=== PATIENT | female | born 2000 | race Caucasian/White ===

== ENCOUNTER 2022-01-06 01:28 | Inpatient (IN) | payer OTHER, SELFPAY ==
[2022-01-06] MEDS ORDERED: PROMETHAZINE INJ 25 MG/ML AMP IM PRN (02:16)
[2022-01-06] MEDS ORDERED: PENICILLIN 5 MU in NA CHLORIDE 0.9% 100 ML IV ONE (02:16)
[2022-01-06] MEDS ORDERED: Ringers Lactate 1,000 ML IV PRN (02:16)
[2022-01-06] MEDS: Ringers Lactate 1,000 ML IV SCH ×2 (02:30→20:40)
[2022-01-06] MEDS: LABETALOL HCL 100 MG/20 ML IV SCH ×2 (02:40→03:00)
[2022-01-06] MEDS ORDERED: METHYLERGONOVINE 0.2MG/ML AMP IM PRN (03:03)
[2022-01-06] MEDS ORDERED: BUTORPHANOL 1 MG/ML INJ IV PRN (03:03)
[2022-01-06] MEDS ORDERED: CARBOPROST TROME 250 MCG/ML IM PRN ×2 (03:03→03:56)
[2022-01-06] MEDS ORDERED: LABETALOL 20 MG/4ML SYRINGE IV ONE (03:11)
[2022-01-06] MEDS ORDERED: CARBOPROST TROME 250 MCG/ML IM ONE (03:18)
[2022-01-06] MEDS ORDERED: LIDOCAINE 1% MPF 30 ML VIAL ONE (03:18)
[2022-01-06] MEDS ORDERED: METHYLERGONOVINE 0.2MG/ML AMP IM ONE (03:18)
[2022-01-06] MEDS ORDERED: MAGNESIUM SULF/STERILE WATER 1,000 ML IV SCH (03:30)
[2022-01-06 03:33] LABS: Specific Gravity 1.025 (1.005-1.030); Urine Bilirubin Negative (Negative); Urine Blood Trace-intact (Negative); Urine Clarity Clear (Clear); Urine Color Yellow (Yellow); Urine Glucose Negative (Negative); Urine Protein 3+ (Negative); Urine Urobilinogen 0.2 mg/dL (0.2-1.0)
[2022-01-06 03:33] LABS: Absolute Lymphocytes (CBC) 2.7 K/uL (0.7-4.9); Hematocrit 39.1 % (36.0-45.0); Lymphocytes % 25.6 % (15.3-44.8); MCV 90.6 fL (80-100); MPV 11.5 fL (7.6-11.3); RBC Red Blood Cell Count 4.32 M/uL (3.86-4.86)
[2022-01-06 03:46] LABS: Urine Bacteria 20-50 /HPF (<20); Urine Mucus 3+ /HPF (None Seen); Urine RBC <5 /HPF (None Seen)
[2022-01-06] MEDS ORDERED: MAGNESIUM SULF/STERILE WATER 1,000 ML IV ONE (03:46)
[2022-01-06] MEDS ORDERED: BISACODYL 10 MG RECTAL SUPP PR PRN (03:56)
[2022-01-06] MEDS ORDERED: DOCUSATE NA/SENNA CONC 1 TAB PO PRN (03:56)
[2022-01-06] MEDS ORDERED: Oxycodone HCl/Acetaminophen 1 TAB TAB PO PRN ×2 (03:56)
[2022-01-06] MEDS ORDERED: DIPHENHYDRAMINE 25 MG TAB/CAP PO PRN (03:56)
[2022-01-06] MEDS ORDERED: ACETAMINOPHEN 500 MG TAB PO PRN (03:56)
[2022-01-06] MEDS ORDERED: OXYTOCIN/LR 20 UNIT/1,000 ML BAG IV SCH ×2 (04:00)
[2022-01-06] MEDS ORDERED: miSOPROStoL 100 MCG TAB ONE (04:23)
[2022-01-06] MEDS ORDERED: miSOPROStoL 100 MCG TAB PO ONE (04:30)
--- NOTE | 2022-01-06 04:40 | PREOPHP ---
Date of Admission: 01/06/2022 History Of Present Illness: 21-year-old, 2, para 1, no care, came in to our institu tion in active labor, 4 cm on admission. Now she is approximately 9 cm, rupture of membranes, clear fluid, vertex. Her initial blood pressures have been in 160 range. I have ordered labetalol 10 mg, to be followed by 10 mg more in 10 minutes if it is not down into more normal range. She said that a pparently she was borderline preeclamptic with her first and was induced at [facility]. This pre gnancy, no care. Family History: Mother says that she had preeclampsia with all of her pregnancies and had bleeding p roblems as well, possibly placenta accreta. Otherwise, no significant family history. Allergies: THE PATIENT HAS NO ALLERGIES. Past Surgical History: No previous surgeries. Physical Examination: HEENT: Clear. Pupils equal, round, reactive to light and accommodation. Conjunctivae well perfused . No oral, lingual, or buccal lesions. Chest/Lungs: Clear. Heart: Without murmurs, thrills, heaves, or rubs. Breasts: Not examined. Abdomen: Obese. Extremities: Clear. Pelvic: As stated. Assessment/plan: The patient is getting penicillin prophylaxis as her beta-strep status of course is unknown. Edwin regularly. We anticipate delivery relatively soon. JILLIAN/RACHEL Voice ID: [id number]
--- NOTE | 2022-01-06 05:04 | PREOPHP ---
Date of Admission: 01/06/2022 Addendum: The patient is unsure of her last menstrual period. She thinks it might have been in Dece mber. They would put her at 34+ weeks. She is obese and therefore it is difficult to tell the exact size of the baby, but we get good FHTs. No deceleration, so we should be at least 34 weeks or beyon d. JILLIAN/RACHEL Voice ID: [id number]
--- NOTE | 2022-01-06 05:04 | OP ---
Surgeon: Esvin Herrera MD Procedure In Detail: A 21-year-old, 2, para 1, no care, unsure of her dates. Came in [facility] regularly and rapidly advancing labor, 4-5 cm on admission. Within the next hour or s o, she was basically complete, noted to have elevated blood pressures on admission and her urine has came back +3 protein. She started on 4 g magnesium sulfate. She also got 5 million units of penicil jamilah as she did not know her strep status of course. She delivered of a 5-pound 8-ounce female. Apga rs 8 or 9 at 1 minute. Good muscle tone. Further advanced in 34 weeks. I think she is probably SGA baby. The patient had she said preeclampsia or borderline preeclampsia with the first and was induced. I think probably the same thing is happening here with an element of small for gestati onal age during the entire that is speculation of course. The placenta was delivered spont aneously. It will be sent to pathology. We have ordered a drug screen. The patient tolerated all p rocedures at this point. No lacerations worthy of suturing. Blood loss is minimal less than 200 cc at this point. All labs are pending. Final Diagnoses: Intrauterine gestation with no care, 34 weeks or beyond probably 37 or 38 in my estimation, preeclampsia, penicillin prophylaxis. JILLIAN/RACHEL Voice ID: [id number] Report ID: [id number]
[2022-01-06] MEDS ORDERED: ONDANSETRON 4 MG/2 ML VIAL IV PRN (06:02)
[2022-01-06] MEDS: LABETALOL 20 MG/4ML SYRINGE IV PRN ×2 (06:15→08:14)
[2022-01-06] MEDS: IBUPROFEN 200 MG TAB PO PRN (07:54)
[2022-01-06 08:20] VITALS: BMI 31.3
--- NOTE | 2022-01-06 09:44 | DS ---
Hospital Course: 21-year-old, 2, para 1, one previous , did deliver at [facility]. The p atient says she was preeclamptic at that point and induced. Patient delivered of a term-appearing fe male infant, 5 pounds 8 ounces, Apgars 9 at one minute. No episiotomy. No lacerations. Adrianne jiang of the placenta, was sent to Pathology. Drug screen is pending. The patient was started on m agnesium sulfate as her blood pressures were elevated to 160 and 105 diastolic range. Protein was +3 . She has mild pretibial and general edema. No CLINICAL OPERATIONS LEADER symptoms whatsoever. Blood pressure is still fl uctuating. She has been given labetalol 10 mg on one or two occasions since the delivery. We will c ontinue the mag sulfate until 24 hours post delivery. Continue to give labetalol IV as needed. Jenelle ent fully counseled today that because she has had blood pressure elevations and preeclampsia, 2 cons ecutive pregnancies, she probably will have blood pressure problems later in life, but more immediate concern is blood pressure control currently. Again, she has no CLINICAL OPERATIONS LEADER symptoms. She knows that she sh ould be seen either at my office or [facility]. We will more than likely send her home o n labetalol p.o. to control her blood pressure. Apparently, she has blood pressure issues in the fam alejandra. Full talk given. She knows when she is dismissed to report any temperature elevatio n of 100 degrees or greater, severe pain, heavy bleeding, or any other type of abnormalities. control issues again of course discussed with the patient. The patient is stable at this point, khushbu koenig well, possibly home tomorrow. NBC/MODL Voice ID: [id number] Report ID: [id number]
[2022-01-06 10:04] LABS: Specific Gravity >= 1.030 (1.005-1.030); Urine Bilirubin Negative (Negative); Urine Blood 1+ (Negative); Urine Clarity Clear (Clear); Urine Color Yellow (Yellow); Urine Glucose Negative (Negative); Urine Protein 3+ (Negative); Urine Urobilinogen 0.2 mg/dL (0.2-1.0)
[2022-01-06 10:20] LABS: Urine Bacteria <20 /HPF (<20); Urine RBC <5 /HPF (None Seen)
[2022-01-06 10:21] LABS: Urine Mucus Slight /HPF (None Seen)
[2022-01-06 11:23] LABS: Barbiturates NEGATIVE (NEGATIVE); Benzodiazepines NEGATIVE (NEGATIVE); Cocaine NEGATIVE (NEGATIVE); METHAMPHETAM NEGATIVE (NEGATIVE); Methadone NEGATIVE (NEGATIVE); Opiates NEGATIVE (NEGATIVE); Phencyclidine NEGATIVE (NEGATIVE); THC Cannibis POSITIVE (NEGATIVE)
[2022-01-07] MEDS ORDERED: LABETALOL 20 MG/4ML SYRINGE IV ONE (07:41)
[2022-01-07] MEDS: IBUPROFEN 200 MG TAB PO PRN (07:50)
--- NOTE | 2022-01-07 09:16 | DS ---
Hospital Course: A 21-year-old, 2, para 1, no care, unsure of her dates. First pre gnancy with [facility], history of preeclampsia. Came in to our institution [place] regularly and adva ncing rapidly, 4-5 cm on admission, noted to have elevated blood pressure and +3 protein. [facility]. Second stage basically 10 minutes, spontaneous vaginal delivery of a 5-pound 8-ounce female, Apgars 8 and 9 at 1 minute. I think the baby was further advanced in 34 weeks. Baby has thompson bsequently done quite well. The patient was given labetalol IV on several occasions to get her blood pressure under better control. Gradually, her blood pressure is improving. She is diuresing well, putting at 300 cc an hour. She has no HAT PARTS CUTTER MACHINE symptoms. Her lochia is normal. She has been offered a T dap. She is Rh positive. The patient has been offered rubella immunization. She will be dismissed with labetalol to be taken 100 mg b.i.d. for at least 2 week. She can see me at my office or at [facility], but she knows she should get followup for blood pressure issues and for control. Ofe cohen control thoroughly discussed with the patient on 2 occasions now. Final Diagnoses: Intrauterine gestation, estimated gestational age 37 to 38 weeks, small for gestati onal age, preeclampsia, improving at this point. Tdap offered. JILLIAN/RACHEL Voice ID: [id number] Report ID: [id number]
[2022-01-07] MEDS: Ringers Lactate 1,000 ML IV SCH (10:31)
[2022-01-07 14:21] VITALS: BP 139/91; TEMP 97.5
== END 2022-01-07 13:10 | disposition home or self-care (01) | DRG 807 ==
LOC: L&D 01:28 → 2ND-WC 02:16
PROVIDERS: ADMIT Specialist; ATTEND Specialist
PROC: 10E0XZZ Delivery of Products of Conception, External Approach (ICD-10-PCS; principal; 2022-01-06)
PROC: 10907ZC Drainage of Amniotic Fluid, Therapeutic from Products of Conception, Via Natural or Artificial Opening (ICD-10-PCS; 2022-01-06)
DX: O15.1 Eclampsia complicating labor (principal); Z37.0 Single live birth; Z3A.37 37 weeks gestation of pregnancy; O99.824 Streptococcus B carrier state complicating childbirth; O99.214 Obesity complicating childbirth; R60.0 Localized edema; E66.9 Obesity, unspecified; Z68.31 Body mass index [BMI] 31.0-31.9, adult; Z20.822 Contact with and (suspected) exposure to COVID-19
CPT/HCPCS: 36415; 80307; 81001; 82947; 83735; 85025; 86592; 86762; 86850; 86900; 86901; 87086; 87088; 87340; 87389; 88307; J2210; J2540; J2590; J3475; J7120; U0003